=== PATIENT | female | born 1975 | race American Indian/Alaskan Native ===

== ENCOUNTER 2017-09-23 18:17 | Emergency (ER) | payer OTHER ==
[~2017-09-23] VITALS: Ht 160 cm; Wt 82.7 kg
[2017-09-23] MEDS ORDERED: OXCA300T4 PO (19:33)
[2017-09-23] MEDS ORDERED: GABA600T2 PO (19:33)
[2017-09-23 19:48] VITALS: BP 139/75
== END 2017-09-23 19:50 | disposition home or self-care (01) ==
LOC: ER 18:20
DX: Z76.0 Encounter for issue of repeat prescription (principal); F41.9 Anxiety disorder, unspecified; F17.200 Nicotine dependence, unspecified, uncomplicated
CPT/HCPCS: 99283

== ENCOUNTER 2025-05-17 17:13 | Emergency (ER) | payer MEDICAID ==
[~2025-05-17] VITALS: Ht 162.6 cm; Wt 69.1 kg
[~2025-05-17 17:13] MED LIST: GABA-1405 PO; OXCA300T4 PO
[2025-05-17 17:17] VITALS: BP 126/92; PULSE 105; RESP 18; TEMP 98.2; O2SAT 98
--- NOTE | 2025-05-17 18:28 | Physician Documentation ---
HPI ~ General Chief Complaint: Medication Request Stated Complaint: LEG NUMBNESS Time Seen by MD: 17:21 Primary Medical Doctor: [facility] History of Present Illness HPI Comments 50-year-old female presents to the ED requesting that there Rx is filled for Zyprexa. Reportedly, the previous visits have resulted in dissolving tablets which pharmacist's are not carrying. Without Medications Since: May 17, 2025 Medication Reconciliation Allergies: Coded Allergies: No Known Allergies (Unverified , 05/17/25) Scheduled Gabapentin (Gabapentin), 2 TAB PO Q8H Oxcarbazepine (Trileptal), 2 TAB PO Q12H Past Medical History Past Medical History: Anxiety Past Surgical History: tubal ligation Review of Systems All Other Systems at this time: Reviewed and Negative ROS As stated above in the HPI, otherwise all systems are reviewed and negative. Physical Exam Physical Exam Vital Signs: Temperature: 98.2, Source: Temporal, Heart Rate: 105, Respiratory Rate: 18, BP: 126/92, Pulse Oximetry: 98, Weight: 69.090 Physical Exam General: Alert, no apparent distress. Neurologic: Oriented x4. Psychiatric: Normal mood and affect. Skin: Normal color, warm and dry. No edema, no ecchymosis. Progress Results/Orders Results/Orders Vital Signs 05/17/25 17:17 Temp 98.2 Pulse 105 Resp 18 B/P (MAP) 126/92 Pulse Ox 98 Medical Decision Making Findings He had not find any evidence of previous scripts of Zyprexa in the patient's medication reconciliation or her external medication reconciliation. A more than willing to send her scripts however she was not in the lobby you when I wanted to bring her back for evaluation Differential Dx:Considerations: Include: Adverse circumstances, Economic, Psy chosocial, Medical services unavail., Medication refill, Medication non- compliance, Other Departure Disposition: LEFT AWOL/ELOPED Impression: Primary Impression: General medical exam Discharge Instructions: Medicine Refill at the Emergency Department Referrals: NO PRIMARY CARE PROVIDER (PCP) Signature Scribe Signature: o Attestation: Scribed for Marc Payton Special Events Director by Marc Quintanilla NP . 05/17/25 18:31 MARC PAYTON NP May 17, 2025 18:28
== END 2025-05-17 18:29 | disposition home or self-care (01) ==
LOC: ER 17:13
DX: Z00.00 Encounter for general adult medical examination without abnormal findings (principal); F41.9 Anxiety disorder, unspecified; Z98.51 Tubal ligation status; Z79.899 Other long term (current) drug therapy
CPT/HCPCS: 99281

== ENCOUNTER 2025-05-23 14:24 | Emergency (ER) | payer BC, MEDICAID ==
[~2025-05-23] VITALS: Ht 157.5 cm; Wt 59.5 kg
[2025-05-23 14:33] VITALS: BP 116/90; PULSE 76; RESP 18; TEMP 97.6; O2SAT 99
[2025-05-23] MEDS ORDERED: HYDROcodone/acetaminophen 10/325mg tab PO STA (18:30)
--- NOTE | 2025-05-23 18:31 | Physician Documentation ---
History of Present Illness ~ Chief Complaint: Numbness Stated Complaint: LOWER BACK PAIN Time Seen by MD: 18:16 OK to notify your PCP?: Yes [facility] Source: patient HPI Patient is seen today with complaints of ascending numbness and tingling starting in the soles of her feet and ascending of into her proximal legs thighs and groin starting two months ago. Patient denies any loss of bowel control but states she does have changes with urination and sensation of urination. Patient denies any fevers or chills. She also complains of low back pain and states she wants a refill of [place]. Patient also states she lost her insurance because she lost her job recently and her insurance does not kick in until midnight tonight. Patient has no other concern or complaint at this time. Medication Reconciliation Allergies: Coded Allergies: No Known Allergies (Unverified , 05/23/25) Scheduled Gabapentin (Gabapentin), 2 TAB PO Q8H Oxcarbazepine (Trileptal), 2 TAB PO Q12H Past Medical History Past Medical History: Anxiety Past Surgical History: tubal ligation Review of Systems Constitutional: Denies: chills, fever, weakness Eyes: Denies: pain, blurred vision ENT: Denies: ear pain, nose pain, throat pain, mouth pain Respiratory: Denies: cough, shortness of breath Cardiovascular: Denies: chest pain, palpitations Gastrointestinal: Denies: abdominal pain, nausea, vomiting Genitourinary: Denies: burning, dysuria Female Genitalia: Denies: vaginal discharge, pelvic pain Neurological: Denies: headache, dizziness Musculoskeletal: Denies: pain, swelling Integumentary: Denies: rash, lesions Allergic/Immunologic: Denies: hives, itching Hematologic/Lymphatic: Denies: no symptoms reported Psychiatric: Denies: depression, anxiety Physical Exam Vital Signs: Temperature: 97.6, Source: Temporal, Heart Rate: 76, Respiratory Rate: 18, BP: 116/90, Pulse Oximetry: 99, Weight: 59.500 General Appearance General: Awake and Alert, no acute distress. HEENT: Conjunctiva pink, Sclera clear, Mucus Membranes moist. Neck: Supple without masses and tenderness. Resp: Unlabored. Lungs clear to auscultation bilaterally. Heart: Regular Rate and rhythm, normal S1 and S2 without murmur, rub or gallop. Musculoskeletal: Patient has decreased strength and decreased light touch sensation of the bilateral lower extremities. Patient has decreased strength worse on the left side with knee extension and hip flexion. As well as plantar flexion. Extremities: No cyanosis,clubbing or edema. Skin: Warm and Dry. Progress Results/Orders Results/Orders Completed Orders - MIRTHA PENG PAC Hydrocodone/Apap 10/325 ([place] 10/325mg (05/23/25 18:30) Vital Signs 05/23/25 14:33 Temp 97.6 Pulse 76 Resp 18 B/P (MAP) 116/90 Pulse Ox 99 Medical Decision Making Findings Patient is seen today with complaints of ascending numbness and tingling starting in the soles of her feet and ascending of into her proximal legs thighs and groin starting two months ago. Patient denies any loss of bowel control but states she does have changes with urination and sensation of urination. Patient denies any fevers or chills. She also complains of low back pain and states she wants a refill of [place]. Patient also states she lost her insurance because she lost her job recently and her insurance does not kick in until midnight tonight. Patient has no other concern or complaint at this time. Patient refused admission and refused MRI of lumbar spine at this time stating she will just have a dose of [place] pain medication and she will come back after midnight tonight when her insurance kicks in. 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 Patient voiced understanding. Departure Disposition: 01 HOME / SELF CARE / HOMELESS Impression: Primary Impression: Numbness of lower limb Additional Impression: Low back pain Qualified Codes: M54.42 - Lumbago with sciatica, left side; M54.41 - Lumbago with sciatica, right side Condition: Fair Additional Instructions: Patient refused admission and refused MRI of lumbar spine at this time stating she will just have a dose of [place] pain medication and she will come back after midnight tonight when her insurance kicks in. Patient and I had a very detailed conversation about the importance of her returning for further treatment as I fe el she possibly has Guillain-Macomb syndrome and also needs an MRI of her lumbar spine to rule out cauda equina syndrome. Patient voiced understanding. Referrals: NO PRIMARY CARE PROVIDER (PCP) Prescriptions Hydrocodone Bit/Acetaminophen (Hydrocodone-Apap 10-325 Tablet) 10mg/325mg Tablet 1 TAB PO TID PRN PRN for pain for 5 Days, #15 TAB Prov: MIRTHA PENG 05/23/25 Signature Scribe Signature: No scribe Attestation: No scribe MIRTHA PENG PAC May 23, 2025 18:31
[2025-05-23] MEDS ORDERED: HYDR-3973 PO (18:35)
== END 2025-05-23 22:11 | disposition home or self-care (01) ==
LOC: ER 14:25
DX: M54.50 Low back pain, unspecified (principal); R20.0 Anesthesia of skin; F41.9 Anxiety disorder, unspecified; Z98.51 Tubal ligation status; Z79.899 Other long term (current) drug therapy
CPT/HCPCS: 99283

== ENCOUNTER 2025-05-23 23:51 | Emergency (ER) | payer BC, MEDICAID ==
[~2025-05-23] VITALS: Ht 157.5 cm; Wt 59.5 kg
[~2025-05-23 23:51] MED LIST changes: +HYDR-3973 PO
--- NOTE | 2025-05-24 01:19 | Physician Documentation ---
History of Present Illness ~ Chief Complaint: Numbness Stated Complaint: NUMBNESS FROM WAIST DOWN Time Seen by MD: 01:05 [facility] Patient presents to the emergency room for evaluation of paresthesias to the lower extremities. She reports that this started three months ago in his slowly traveling up her body. She states that it began with the soles of her feet and she did see her primary care provider regarding these symptoms who is referring her to a neurologist however her insurance labs during that time and she would not get her insurance until this morning at midnight. She is here for further investigation. Medication Reconciliation Allergies: Coded Allergies: No Known Allergies (Unverified , 05/23/25) Scheduled Gabapentin (Gabapentin), 2 TAB PO Q8H Oxcarbazepine (Trileptal), 2 TAB PO Q12H Scheduled PRN Hydrocodone Bit/Acetaminophen (Hydrocodone-Apap 10-325 Tablet), 1 TAB PO TID PRN PRN for pain Past Medical History Past Medical History: Anxiety Past Surgical History: tubal ligation Review of Systems ROS All review of systems negative except as per HPI Physical Exam Vital Signs: Temperature: 98.4, Heart Rate: 83, Respiratory Rate: 16, BP: 127/92, Pulse Oximetry: 99, Weight: 59.500 Oxygen Flow Rate: 0 General Appearance General: Patient is awake, alert, oriented x4 in no acute distress and well appearing.~ Head: Normocephalic and atraumatic. Eyes: Conjunctival normal. EOMI. PERRL. ENT: Mucous membranes moist. Neck: Supple, trachea is midline. Chest: Clear to auscultation bilaterally without rales, rhonchi, or wheezes. There is no accessory muscle use or retractions. Cardiac: RRR without murmurs, gallops, or rubs. Neuro: Cranial nerves II-XII grossly intact. No focal neuro deficits. Patient ambulating without difficulty. 2+ prepatellar reflexes bilateral Progress Results/Orders Results/Orders Vital Signs 05/23/25 05/24/25 05/24/25 23:59 01:19 01:22 Temp 98.4 Pulse 83 72 Resp 16 15 16 B/P (MAP) 127/92 119/87 (98) Pulse Ox 99 99 O2 Flow Rate 0 0 Medical Decision Making Findings Patient presents to the emergency room for evaluation of paresthesias to lower extremities. Differentials include but are not limited to Kendra [place], transverse myelitis, stroke, spinal abscess, cauda equina therefore tele neurologist consulted. Symptoms are inconsistent with any one exam. He feels that EMG we would be of most benefit in outpatient setting. Patient does have a primary care provider in his working with her primary care provider regarding her symptoms. No bladder or bowel incontinence. The need for follow up discussed Departure Disposition: HOME / SELF CARE / HOMELESS Impression: Primary Impression: Numbness Condition: Fair Discharge Instructions: Paresthesia Additional Instructions: Follow up with your provider, Chanel, tomorrow for referral for outpatient EMG. Return for any bladder or bowel incontinence Referrals: NO PRIMARY CARE PROVIDER (PCP) Signature Scribe Signature: No scribe Attestation: The note accurately reflects work and decisions made by me.Brandon Raines MD 05/24/25 01:42 BRANDON RAINES MD May 24, 2025 01:19
--- NOTE | 2025-05-24 01:33 | CONSULTATION REPORT ---
History of Present Illness Providers to CC ~ Refering MD: BOOKER Allergies: Coded Allergies: No Known Allergies (Unverified , 05/23/25) Home Medications Home Medications Active Hydrocodone-Apap 10-325 Tablet (Acetaminophen/Hydrocodone Bitart) 10mg/325mg Tablet 1 Tab PO TID PRN PRN 5 Days Trileptal (Oxcarbazepine) 300 Mg Tablet 2 Tab PO Q12H 7 Days Gabapentin 600 Mg Tablet 2 Tab PO Q8H 7 Days Physical Exam Last Vital Signs Recorded: Temperature: 98.4, Heart Rate: 72, Respiratory Rate: 16, BP: 119/87, Pulse Oximetry: 99, Weight: 59.500 Assessment/Plan Additional Plan [place] Neuro Note # Demographics Consult Type: General Neurology Patient Location: Emergency Room First Name: MEG Last Name: CHELSEA Date of : 1975 Age: 50 Gender: Female Facility: [facility] Time of Initial Page (): 05/24/2025 01:18 First Contact with Site (): 05/24/2025 01:19 # HPI History: 50 year old female with PMH of depression that I was requested to evaluate for a neurologic concern. She has a 3 month history of progressive ascending paresthesias and weakness in the lower extremities and have traveled all the way to the shins. The patient reports that at first she developed back pain, then this turned into numbness into her feet and has progressed to the point that it is going up to her breast. this started on February 21. The symptoms gradually increased. The past month her skin has been super sensitive to touch and she has been having to put aspercrem on it. She has increased instability. If she is not in her shoes she can fall, including a few times in the shower. The patient waited this long because her insurance just barely kicked in. # Exam Time of Exam (): 05/24/2025 01:25 Vitals: vital signs reviewed Mental Status: - awake - alert and oriented x 3 - follows commands Language: - normal speech - no aphasia - no dysarthria Cranial Nerves: - normal - normal facial sensation - no facial droop Motor: - normal strength - no drift Sensory: - normal sensation Cerebellar: - normal cerebellar exam - normal finger nose - normal heel avitia # PMH-FH-SH Past Medical History: depression # Assessment Impression: - Other 1. The patient presents with slowly progressive ascending numbness with associated instability, although has normal strength on examination. She's had no testing on examination. Differential can include a sensory neuropathy -- the progressive nature is unusual, especially as it is reported by the ED physician that she has retained reflexes. Given that there is a subjective sensory level, this could suggest transverse myelitis, but ascending quality is very unusual for that diagnosis as well. I think that it is reasonable to start with an outpatient EMG as I don't see any indication for admission at this point. # Plan Other: - If patient has any neurological deterioration please call me back immediately Additional Recommendations: RECS: == outpatient EMG == establish with primary care == if the EMG negative, can consider MRI of the thoracic spine with and without contrast to evaluate for spinal pathology (although the ascending nature would be unusual for transverse myelitis) # Logistics Attestation of consult completion: The patient is located at: [facility]. Facility staff participated in the visit. I performed this telemedicine visit from my offsite office utilizing interactive 2 way audio and visual telecommunication technology at the request of the onsite emergency room provider. Consent: Verbal consent was obtained from the patient and/or family for this encounter. Total time spent in telemedicine encounter: I spent 20 minutes reviewing clinical data and/or imaging, obtaining history, examining the patient, communicating with the onsite care team, and in preparation of this report. Critical Care time: 15 minutes of this encounter were critical care time. Due to a high probability of clinically significant, life-threatening neurologic deterioration, the patient required my highest level of preparedness to intervene emergently. I spent this critical care time managing the patient in conjunction with on-site providers who requested my consultation. In addition to the above, this critical care time included recommendation and review of studies, including imaging; arranging an urgent treatment and management plan with on-site providers; evaluation of patient's response to treatment; and documentation. This critical care time was performed to assess and manage the high probability of imminent, life-threatening deterioration that could result in neurologic catastrophe. # Demographics First Name: MEG Last Name: CHELSEA Facility: [facility] BENJY LOMBARDO MD May 24, 2025 01:33
[2025-05-24 01:53] VITALS: BP 134/88; PULSE 79; RESP 16; TEMP 98.4; O2SAT 99
== END 2025-05-24 01:57 | disposition home or self-care (01) ==
LOC: ER 23:52
DX: R20.0 Anesthesia of skin (principal); F41.9 Anxiety disorder, unspecified; Z98.51 Tubal ligation status; Z79.891 Long term (current) use of opiate analgesic; Z79.899 Other long term (current) drug therapy
CPT/HCPCS: 99284